=== PATIENT | male | born 1935 | race Caucasian/White ===

== ENCOUNTER 2017-02-02 09:28 | Observation (INO) | payer MEDICARE, BC ==
[2017-02-02] VITALS (15 sets, daily range): BP systolic 115–185; BP diastolic 62–91
[~2017-02-02] VITALS: Ht 172.7 cm; Wt 74.2 kg
[~2017-02-02 09:28] MED LIST: AMLO10TA2 PO; ASPI325T8 PO; ATOR40TA59 PO; CLOP75TA PO; FAMO20TA5 PO; FLUT12AE IH; LOSA100T6 PO
[2017-02-02 10:04] LABS: HEMATOCRIT 41.1 % (39.0-53.0); HEMOGLOBIN 13.9 g/dL (13.0-17.5); RED BLOOD COUNT 4.38 x10^6/uL (4.30-5.70); RED CELL DISTRIBUTION WIDTH 12.8 % (11.5-14.5)
--- NOTE | 2017-02-02 10:06 | EKG ---
[facility] [address] [place] [address] Test Date: 2017-02-02 Test Time: 10:04:07 Pat Name: JASPAL ALLEN Department: Room: Gender: M Field Training Agent: JOSE M : 1935 Requested By: ZACARIAS HAYNES Order Number: [id number] Reading MD: Cb Flores MD Measurements Intervals [place] Rate: 57 P: 34 ME: 204 QRS: 41 QRSD: 126 T: 13 QT: 432 QTc: 424 Interpretive Statements SINUS RHYTHM RBBB PRIOR INFERIOR INFARCT Electronically Signed On 02-05-2017 10:52:34 MERCHANDISING INTERN by Cb Flores MD
[2017-02-02 10:15] LABS: CALCIUM 9.7 mg/dL (8.5-10.1); CREATININE 2.4 mg/dL (0.7-1.3); POTASSIUM 4.9 mmol/L (3.5-5.1)
[2017-02-02 10:20] LABS: INR 1.1 (0.8-1.1); PROTHROMBIN TIME PATIENT 13.1 SEC (11.7-14.0)
[2017-02-02] MEDS ORDERED: BACITRACIN 50,000 UNIT in IV NORMAL SALINE 250ML 250 ML IRR ONE (11:15)
[2017-02-02] MEDS ORDERED: LIDOCAINE 2%/EPI 1:100,000 20 ML VIAL. ONE (11:25)
--- NOTE | 2017-02-02 11:25 | PDOC ---
MODERATE SEDATION ASSESSMENT RISKS/ALTERNATIVES Risks/Alternatives Risks and alternatives of this type of sedation and procedure discussed with: RISK/ALTERNATIVES: Patient H & P ON CHART H & P H & P on chart and reviewed for co-morbid conditions and appropriate labs. H&P ON CHART: Yes STATUS PREG STATUS ASSESSED: N/A MEDS/ALLERGIES REVIEWED Meds/Allergies Reviewed Medications and Allergies including time and route of recently administered narcotics and sedatives. MEDS/ALLERGIES REVIEWED: Yes ASA RATING ASA RATING: II AIRWAY ASSESSMENT Airway Assessment Airway patency, oral function limitations, presence of caps, crowns, dentures, partials, and ability to extend neck assessed. AIRWAY ASSESSMENT: Yes MALLAMPATI SCORE MALLAMPATI SCORE: II PRE-SEDATION ASSESSMENT PRE-SEDATION ASSESSMENT: Yes ZACARIAS HAYNES MD Feb 02, 2017 11:25
[2017-02-02] MEDS ORDERED: MIDAZOLAM HCL/PF 5 MG/5 ML VIAL. ONE (11:45)
[2017-02-02] MEDS ORDERED: fentaNYL PF VIAL 250 MCG/5 ML VIAL ONE (11:46)
[2017-02-02] MEDS ORDERED: MIDAZOLAM HCL/PF 5 MG/5 ML VIAL. IV ONE (12:15)
[2017-02-02] MEDS ORDERED: fentaNYL PF VIAL 250 MCG/5 ML VIAL IV ONE (12:15)
[2017-02-02] MEDS ORDERED: LIDOCAINE 2%/EPI 1:100,000 20 ML VIAL. IJ ONE (12:15)
--- NOTE | 2017-02-02 12:55 | CARD ---
APPROVED REPORT PROCEDURES Successful Biotronik dual-chamber permanent pacemaker implantation Moderate sedation: 40 min INDICATIONS Sick sinus syndrome and significant pauses PROCEDURE After explaining the risks, benefits, and alternative options, informed consent was obtained from the patient. The patient was brought to the cardiac catheterization lab and the left chest and shoulder were prepp ed and draped in a sterile manner. 30 mL of 2% lidocaine was infiltrated into the skin and subcutaneous tissues for local anesthesia. An incision was made over the left infraclavicular fossa and using blunt dissection and cautery a pocke t was created. Venous access was obtained in the left subclavian vein and 8 and 6 Danish sheaths were inserted. A Biotronik bipolar active fixation right ventricular lead model Solia, serial #[id number] was position ed in the right ventricular apex under fluoroscopy guidance. Subsequently, Biotronik bipolar active f ixation right atrial lead model Solia, serial #[id number] was positioned in the right atrial appendage under fluoroscopy guidance. The leads were secured into place and attached to a Biotronik dual-chambe r permanent pacemaker generator Eluna 8 DR-T ProMRI, serial #[id number]. This was placed in the pocket was subsequently closed in 3 layers. Hemostasis was secured. The right ventricular lead showed a sensing amplitude of 7.6 mV, impedance of 585 ohms and a threshol d of 0.6 V. The right atrial lead showed a sensing amplitude of 3.9 mV, impedance of 468 ohms and a t hreshold of 1 V. Patient part of the procedure well. There were no immediate complications. CONCLUSION Successful Biotronik dual-chamber permanent pacemaker implantation for symptomatic sick sinus syndrom e with significant pauses.
--- NOTE | 2017-02-02 13:43 | RAD ---
Portable AP upright view CXR: Clinical indications: Post pacemaker placement. Findings: No acute lung infiltrate or pleural effusion or pulmonary edema or lung mass or pneumothorax is seen. Bipolar atrial-ventricular pacemaker has been placed via a left subclavian approach. The heart size, pulmonary vasculature, mediastinum and both duane are otherwise unremarkable. Impression: No acute radiographic abnormality is seen.
[2017-02-02] MEDS ORDERED: AMLO5TAB2 PO (14:25)
[2017-02-03 03:09] VITALS: BP 143/73
[2017-02-03 07:00] VITALS: BP 163/76
[2017-02-03] MEDS ORDERED: BUDESONIDE 0.5 MG/2 ML NEBU. NEB SCH (08:00)
[2017-02-03] MEDS ORDERED: CLOPIDOGREL BISULFATE 75 MG TABLET PO SCH (08:00)
[2017-02-03] MEDS ORDERED: ASPIRIN 325 MG TABLET PO SCH (08:00)
--- NOTE | 2017-02-03 08:07 | RAD ---
EXAM: Chest, 2 views. HISTORY: Pacemaker placement. COMPARISON: 02/02/2017. FINDINGS: Frontal and lateral views of the chest are obtained. There is a left cardiac pacemaker with leads in expected position. There is no pneumothorax. There is no pleural effusion. There is left basilar atelectasis or scarring. The heart is normal in size. IMPRESSION: 1. Dual lead left cardiac pacemaker in expected position. 2. No acute pulmonary finding.
[2017-02-03] MEDS ORDERED: LOSARTAN POTASSIUM 50 MG TABLET. PO SCH (09:00)
[2017-02-03] MEDS ORDERED: IPRATRPIUM/ALBUTEROL 0.5/2.5MG 3 ML NEBU. NEB SCH (10:00)
--- NOTE | 2017-02-03 10:29 | PDOC3 ---
Discharge Summary Visit Information Date of Admission: Feb 02, 2017 Date of Discharge: Feb 03, 2017 Admitting Diagnosis Comment: symptomatic SSS Final Diagnosis S/P PPM for SSS Brief Hospital Course Allergies Allergies Coded Allergies Type Severity Reaction Last Updated Verified Sulfa (Sulfonamide Antibiotics) Allergy Intermediate Rash 02/03/17 Yes Vital Signs Vital Signs Date Time Temp Pulse Resp B/P (MAP) Pulse Ox O2 Delivery O2 Flow Rate FiO2 02/03/17 09:58 66 163/76 02/03/17 07:00 97.9 18 95 Room Air 97.9 02/02/17 12:34 4.0 Lab Results Laboratory Tests Test 02/02/17 10:00 White Blood Count 7.0 x10^3/uL (4.0-11.0) Red Blood Count 4.38 x10^6/uL (4.30-5.70) Hemoglobin 13.9 g/dL (13.0-17.5) Hematocrit 41.1 % (39.0-53.0) Mean Corpuscular Volume 94 fL (79-100) Mean Corpuscular Hemoglobin 32 pg (25-35) Mean Corpuscular Hemoglobin Concent 34 g/dL (31-37) Red Cell Distribution Width 12.8 % (11.5-14.5) Platelet Count 244 x10^3/uL (140-400) Prothrombin Time 13.1 SEC (11.7-14.0) Prothromb Time International Ratio 1.1 (0.8-1.1) Sodium Level 142 mmol/L (136-145) Potassium Level 4.9 mmol/L (3.5-5.1) Chloride Level 106 mmol/L (98-107) Carbon Dioxide Level 30 mmol/L (21-32) Anion Gap 6 (6-14) Blood Urea Nitrogen 47 mg/dL (8-26) Creatinine 2.4 mg/dL (0.7-1.3) Estimated GFR (Cockcroft-Gault) 26.0 Glucose Level 111 mg/dL (70-99) Calcium Level 9.7 mg/dL (8.5-10.1) Brief Hospital Course Mr. Burrell is a 81 old male admitted for planned pacemaker placement for symptomatic SSS. Dual chamber Biotronik pacemaker with generator placement to left chest. Site is intact with small serosanguineous drain otherwise intact with steristrips without erythema or significant swelling. Neurovascular status to LUE intact. Pt tolerated procedure well and post pacer instructions were reviewed. Repeat device interrogation revealed normal functioning device and no complications noted post procedure. Ambulated without difficulty, Denies any discomfort. BP initially labile and meds were adjusted. Pt is to follow up in the office in 2 weeks for wound check. Continue with home medications otherwise. Discharge Information Condition at Discharge: Stable Follow Up: Weeks (2) Disposition/Orders: D/C to Home Scheduled Amlodipine Besylate (Amlodipine Besylate), 5 MG PO BID, (Reported) Aspirin (Aspirin), 325 MG PO DAILYWBKFT Atorvastatin Calcium (Atorvastatin Calcium), 40 MG PO QHS Clopidogrel Bisulfate (Clopidogrel), 75 MG PO DAILYWBKFT Famotidine (Famotidine), 20 MG PO QHS Fluticasone Propionate (Flovent 110MCG Hfa), 2 PUFF IH BID, (Reported) Losartan Potassium (Losartan Potassium), 50 MG PO DAILY, (Reported) Patient Instructions Patient Instructions Must know & what to expect after device implant: 1. Your surgical dressing should be removed prior to discharge from the hospital, but allow the steri- strips to fall off naturally. 2. Activity restrictions: DO NOT raise arm above shoulder level, lift anything heavier than a gallon of milk, and no push or pull motions such as vacuuming/lawn mowing, no swinging motions (golf), etc for 4 weeks. 3. It is OK to use a cell phone or other electronic devices just be sure you do not store it in a breast pocket on the side where the device was placed. 4. Device will be interrogated prior to your discharge from the hospital and then every 3 months for defibrillators and every 6 months for pacemakers. You may be asked to have your device checked remotely from home as well, but this will depend on your particular physicians preference. 5. You may remove the arm immobilizer the day after device placement. Wear the arm immobilizer/splint at night (during sleep times) for 2 week to prevent unintended arm movement that can cause lead dislodgement. 6. Do not drive for one week as the task of driving may lead to unintended arm motion that may cause lead dislodgement. The seatbelt will also rub against the incision site & cause irritation. 7. It is our recommendation that you utilize Tylenol at home for pain control. You need to call our office if you are having uncontrollable pain at the incision site. 8. Keep your incision clean and dry. It is OK to shower. DO NOT submerge in bath, pool, or hot tub, until cleared by your doctor, as this could lead to increase risk of infection.. It is OK to use regular soap just do not scrub the incision site. Water spray from shower should not directly hit the incision. Be sure to blot dry not rub. 9. Inspect your incision daily. If you notice any increased redness, swelling , or drainage, or if you start running a fever, call the office immediately. The number is [phone]. 10. For women, if you need to protect against irritation from the bra straps, you can place a piece of gauze over the incision site for cushion. Please be sure to tape it loosely to allow air to the site & remove the gauze when you remove the bra. 11. Be sure to carry your device identification information card in your wallet/purse at all times. 12. It is OK to go through security at the airport with your device, but be sure to let the TSA know prior to proceeding as the security settings change depending on varying factors. Please do whatever is requested by security at that time. 13. Some of the newer devices may be MRI compatible but, currently, the use of these devices is not widespread, so you likely will not be able to have an MRI. Please clarify this with your physician. If at any time, you feel lightheaded or dizzy/faint, stop what you are doing & lie down immediately. If you are driving, get to the side of the road quickly, turn your car off & call 911 on your cell phone. DO NOT continue to drive as this may cause an accident that seriously injures yourself &/or others. Call the office at [phone] for any questions or concerns. SHAQ BAUGH APRN Feb 03, 2017 10:29
[2017-02-03] MEDS ORDERED: amLODIPine BESYLATE 5 MG TABLET PO ONE (10:45)
[2017-02-03 10:53] VITALS: BP 152/66
[2017-02-03] MEDS ORDERED: FAMOTIDINE 20 MG TABLET. PO SCH (21:00)
[2017-02-03] MEDS ORDERED: ATORVASTATIN CALCIUM 40 MG TABLET. PO SCH (21:00)
== END 2017-02-03 11:10 | disposition home or self-care (01) ==
LOC: CCL 09:28 → 2 NORTH 11:30
PROVIDERS: ADMIT Internal Medicine Cardiovascular Disease; ATTEND Internal Medicine Cardiovascular Disease
DX: I49.5 Sick sinus syndrome (principal)
CPT/HCPCS: 33208; 36415; 71010; 71020; 80048; 85027; 85610; 93005; 96365; C1785; C1892; C1898; G0378; G0379; J0690; J2250; J3010; J3490; J7050; J7030

== ENCOUNTER → 2021-03-08 | Outpatient (CLI) | payer MEDICARE, BC ==
[~2021-03-08] MED LIST changes: +AMLO-186 PO; +AMLO-187 PO; -AMLO10TA2 PO; +LOSA100T14 PO; -LOSA100T6 PO
--- NOTE | 2021-03-08 11:56 | RAD ---
Site ID: [id number] EXAMINATION: CT ABDOMEN+PELVIS WO. Technique: Axial images with coronal and sagittal reconstructions are performed of abdomen and pelvis without contrast. One or more of the following radiation dose reduction techniques was used: automated exposure control , adjustment of mA and/or KV according to patient size, and/or utilization of iterative reconstructio n technique. HISTORY: 85 years Male Reason: CKD STAGE 4 COMPARISON: None. FINDINGS: The lung bases demonstrate no significant consolidation. From partial visualization of the pacer wires also noted. Punctate calcifications in the liver and the spleen is suggestive of prior granulomatous process. The gallbladder, pancreas, and the adrenal glands appear unremarkable for an unenhanced exam. The kidneys demonstrate no hydronephrosis. There is a no urinary tract stone identified. There is enedelia e moderate to atrophy in the right kidney and the mild atrophy and the left kidney. Slight enlargeme nt of the prostate measuring 4.7 cm is seen. The urinary bladder demonstrate no significant abnormali ty. The abdominal aorta is normal in caliber. There are from borderline para-aortic lymph nodes as seen m easuring catheter up to 1 cm in short axis, all from uncertain significance. There is a colonic anast omosis is seen in the left lower quadrant. The moderate amount of fecal material is seen in the colon . No dilated bowel loops to suggest obstruction. The appendix is not seen. Correlate to surgical hist ory. No significant the free fluid or fluid collection in the abdomen or pelvis. The osseous structures demonstrate degenerative changes most prominent at L5/S1 level with posterior osteophytes seen at L4/5 and L5/S1. IMPRESSION: No acute process. Electronically signed by: Alfredo Villalobos MD (03/08/2021 11:53 AM) [id number]
== END ==
LOC: CT 10:25
PROVIDERS: ATTEND Nurse Practitioner Adult Health
DX: K63.89 Other specified diseases of intestine (principal); K76.89 Other specified diseases of liver; N40.0 Benign prostatic hyperplasia without lower urinary tract symptoms; N18.4 Chronic kidney disease, stage 4 (severe); M47.817 Spondylosis without myelopathy or radiculopathy, lumbosacral region; M25.78 Osteophyte, vertebrae
CPT/HCPCS: 74176

== ENCOUNTER 2021-08-18 09:28 | Day surgery (SDC) | payer MEDICARE, BC ==
[~2021-08-18] VITALS: Ht 172.7 cm; Wt 71.4 kg
[~2021-08-18 09:28] MED LIST changes: +AMLO10TA4 PO; +CALC-71 PO; +CHOL100013 PO; +FAMO40TA4 PO; +HEPARIN SODIUM 1,000 UNIT in IV NORMAL SALINE 100ML 100 ML IRR ONE; +HYDROmorphone 2 MG/ML INJ. IVP PRN; +IV RINGERS,LACTATED 1000ML 1,000 ML IV SCH; +METO-239 PO; +MORPHINE SULFATE 2 MG/ML INJ. IVP PRN; +OMEG1CAP38 PO; +PROCHLORPERAZINE 10 MG/2 ML VIAL. IVP PRN; +ceFAZolin SODIUM IV Push 1 GM VIAL. IVP PRN; +fentaNYL PF VIAL 100 MCG/2 ML VIAL IVP PRN
[2021-08-18 09:55] VITALS: BP 149/65
[2021-08-18] MEDS ORDERED: IV NORMAL SALINE 1000ML BAG 1,000 ML IV SCH (10:15)
[2021-08-18 10:28] LABS: CALCIUM 8.6 mg/dL (8.5-10.1); CREATININE 3.3 mg/dL (0.7-1.3); GFR 17.8; POTASSIUM 4.5 mmol/L (3.5-5.1)
[2021-08-18] MEDS ORDERED: fentaNYL PF VIAL 100 MCG/2 ML VIAL ONE (10:30)
[2021-08-18] MEDS ORDERED: SEVOFLURANE 61 TO 120 MINUTES. IH ONE (10:30)
[2021-08-18] MEDS ORDERED: PROPOFOL 10 MG/ML (20ML) VIAL. IV ONE (10:30)
[2021-08-18] MEDS ORDERED: ONDANSETRON PF 4 MG/2 ML VIAL. ONE (10:30)
[2021-08-18] MEDS ORDERED: ROCURONIUM 50 MG/5 ML VIAL. ONE (10:30)
[2021-08-18] MEDS ORDERED: NEOSTIGMINE METHYLSULFATE 5 MG/5 ML SYRINGE. ONE (10:31)
[2021-08-18] MEDS ORDERED: GLYCOPYRROLATE 1 MG/5 ML VIAL. ONE (10:31)
--- NOTE | 2021-08-18 11:52 | PDOC4 ---
Operative Note Operative Note OPERATIVE NOTE: PREOPERATIVE DIAGNOSIS: Renal failure. POSTOPERATIVE DIAGNOSIS: Renal failure. PROCEDURE: Laparoscopic peritoneal dialysis catheter placement. SURGEON: Mamadou Walker MD ARCHITECTURAL INTERN: Shara PARRA, Aurelia Marion MS3 ANESTHESIA: General. ESTIMATED BLOOD LOSS: 5 mL. SPECIMENS: None. DRAINS: None. COMPLICATIONS: None. INDICATIONS: The patient is an 86 year old male who was referred for placement of a peritoneal dialysis catheter due to progressive renal failure. The details and risks of surgery were discussed with the patient. The risks of surgery include bleeding, infection, visceral injury, pain, anesthetic risk, potential need for additional surgery or procedure. In addition, the patient is aware of the potential for catheter malfunction or dysfunction and possibility of needing revision, replacement, or removal of the catheter. They understand all this and would like to proceed. DESCRIPTION OF PROCEDURE: The patient was brought to the operating room and placed supine on the operating table. General anesthesia was performed. The abdomen was prepped with ChloraPrep and draped in a standard surgical manner. A small incision was made in the patient's left upper quadrant through which a visualized 5-mm trocar was inserted. A pneumoperitoneum was then created and the laparoscope was introduced. Initial inspection showed mild adhesions of omentum to the upper abdomen, however the mid and lower abdomen were free. Using the placement template, the left abdomen was marked with a planned catheter exit site in the left abdomen. A small incision was made to the left of the patient's midline at the marked location for the exit site of the cuff. An 8-mm trocar was inserted through this location. The coiled portion of the lower catheter was then inserted into the pelvis under direct visualization. The cuff was positioned in the rectus musculature. The coiled portion rested well in the inferior mid pelvis. The pneumoperitoneum was then relieved. An incision was then made in the left lower quadrant at the planned exit site. The proximal portion of the catheter was tunnelled subcutaneously to the exit site. The proximal cuff remained in the subcutaneous tissue a few cm away from the exit site. The catheter was then assembled to IV tubing and tested by infusing a liter of saline. The saline passed easily into the abdomen and the bag was placed on the floor. Nearly all of the saline readily was retrieved with prompt flow. The abdominal cavity was then reinsufflated and the laparoscope was reintroduced showing no change in the catheter position and the cuff remained in the rectus. The pneumoperitoneum was relieved and the ports were removed. The catheter was then assembled to the connector tubing as per the dialysis instructions. All the incision sites were closed with 4-0 Monocryl. Steri- Strips and sterile dressing were then applied. The patient tolerated procedure well and was sent to the recovery room in stable condition. At the end of the case all counts were correct. MAMADOU WALKER MD August 18, 2021 11:52
[2021-08-18] MEDS ORDERED: HYDR-2761 PO (11:54)
--- NOTE | 2021-08-18 11:56 | DISCH ---
DISCHARGE INSTRUCTIONS Condition on Discharge Condition on Discharge: Stable Activity After Discharge Activity Instructions for Disc: Other, see below (No lifting over 20 lbs X 2 weeks, no driving while taking pain meds) Diet after Discharge Diet after Discharge: Renal Dialysis Follow-Up Follow up with: Dialysis center ELI WALKER MD August 18, 2021 11:56
[2021-08-18] MEDS ORDERED: HYDROcodone/APAP 5/325MG 1 TAB TABLET PO ONE (12:15)
[2021-08-18 12:25] VITALS: BP 122/72
== END 2021-08-18 13:00 | disposition home or self-care (01) ==
LOC: SURG 09:28
PROVIDERS: ATTEND Surgery
DX: N19 Unspecified kidney failure (principal); I10 Essential (primary) hypertension; E78.00 Pure hypercholesterolemia, unspecified; J45.909 Unspecified asthma, uncomplicated; M19.90 Unspecified osteoarthritis, unspecified site; G47.30 Sleep apnea, unspecified; Z99.2 Dependence on renal dialysis; Z79.899 Other long term (current) drug therapy; Z98.890 Other specified postprocedural states; Z88.2 Allergy status to sulfonamides
CPT/HCPCS: 36415; 49324; 80048; A4213; A4314; A4364; A4930; A6219; A6402; C1752; J0690; J1644; J2405; J2704; J2710; J3010; J3490; A4452